=== PATIENT | male | born 1950 | race Caucasian/White ===

== ENCOUNTER 2023-03-16 17:36 | Emergency (ER) | payer MEDICARE, OTHER, SELFPAY ==
[2023-03-16 17:41] VITALS: BP 174/89; PULSE 80; RESP 24; TEMP 36.8; O2SAT 99; BMI 25.0
--- NOTE | 2023-03-16 18:44 | ED.GENADULT ---
HPI - General Adult General Chief complaint: Trauma Stated complaint: Fell off ladder to face, NO blood thinners Time Seen by Provider: 03/16/23 17:51 Source: patient Mode of arrival: Ambulatory Limitations: no limitations History of Present Illness HPI narrative: Patient is a 72-year-old male. Yesterday he fell from a ladder. He sustained injuries to his face. He was seen at an outside facility yesterday. Was found to have intracranial gas over the left frontal sinus, LeFort type 1 and 2 on the left and possibly a LeFort type 3 on the right. Also has comminuted fractures of the anterior and posterior jennings of the frontal sinuses. According to the ED note that I was able to review from that visit the neurosurgical service at [facility] and also oral maxillofacial surgery at [facility] was contacted. According to the note the CT scans were reviewed. Apparently the decision was made to discharge the patient home with antibiotics and pain medication and instructions to follow-up in clinic. They were contacted by the oral maxillofacial surgery department at [facility] today. They were given a follow-up visit for March 23. He has been tolerating the antibiotics without issues. He has been taking the pain medication but he has been taking it every 6 hours. He is here because he states that he is having a headache. He also states that his jaw does not line up. He is no missing teeth. Is still tolerating oral intake but is taking soft foods. Related Data Previous Rx's Medication Instructions Recorded oxycodone-acetaminophen 5 mg-325 1 tab PO Q4H PRN pain #20 tabs 03/16/23 mg tablet (Percocet) Allergies Allergy/AdvReac Type Severity Reaction Status Date / Time No Known Drug Allergies Allergy Verified 03/16/23 17:41 Review of Systems Constitutional Constitutional: Reports system reviewed and no additional complaints, except as documented Eyes Eyes: Reports system reviewed and no additional complaints, except as documented ENT Ears, Nose, Mouth, and Throat: Reports system reviewed and no additional complaints, except as documented Integumentary/Breasts Skin/Breast: Reports system reviewed and no additional complaints, except as documented Neurologic Neurologic: Reports system reviewed and no additional complaints, except as documented Hematologic/Lymphatic On Anticoagulants: No Patient History Social History Smoking Status: Never smoker Smoking Status: Never smoker alcohol intake frequency: holidays/special occasions only Substance Use Type: does not use Exam Initial Vital Signs Initial Vital Signs: Vital Signs Temperature 98.2 F 03/16/23 17:41 Pulse Rate 80 03/16/23 17:41 Respiratory Rate 24 03/16/23 17:41 Blood Pressure 174/89 H 03/16/23 17:41 Pulse Oximetry 99 03/16/23 17:41 Oxygen Delivery Method Room Air 03/16/23 17:41 Const General: cooperative HENMT Head: abrasion and contusion Nose: No epistaxis and other (Somewhat deviated to the left) HENMT Other: No clear nasal discharge Eyes Other: Contusion on both eyes with left being greater than the right Skin Other: Contusions around the eyes. Neuro General: patient alert, patient awake and moves all extremities Extrem Other: No gross deformities Scores GCS Cain coma scale eye opening: Spontaneous Cain coma scale verbal response: Orientated [place] coma scale motor response: Obey commands [place] coma scale total score: 15 Course Vital Signs Vital signs: Vital Signs - 8 hr 03/16/23 17:41 03/16/23 18:53 Temperature 98.2 F Pulse Rate 80 63 Respiratory Rate 24 Blood Pressure 174/89 H 153/74 H Pulse Oximetry 99 98 Oxygen Delivery Method Room Air Room Air Medical Decision Making Medical Records Medical records reviewed: Yes I reviewed the patient's medical records. [facility] Narrative Medical decision making narrative: It was able to review the medical records from his emergency department visit yesterday. I was also able to review the radiology reports. Patient returns today because he has a continued headache. This is not surprising given his presentation. He absolutely has sustained a concussion and he also has other injuries that would cause a headache as well. I had a discussion with him regarding this. They were also concerned about the length of time before they could get into follow-up with Oral maxillofacial surgery. According to the note from yesterday there were discussions both with neurosurgery and oral maxillofacial surgery and everyone involved felt that the patient could follow-up as an outpatient. He is on antibiotics. I do not think that we need to repeat any imaging today. He is no new neurologic symptoms. Turns out that he is probably not using his pain medication is often is what he should. He was concerned about taking this given the nature of the medication and worried about all of the bed side effects that he could have. He was also worried about running out of the medication before he could get into follow-up with the oral maxillofacial surgeons at [facility]. We did discuss this medication. Tried to discuss the balance between taking the medication in the side effects. I will also print off a prescription for more medication that they can have just in case he needs it before his next appointment. Will discharge patient home with return precautions. He expressed understanding and agreement. Discharge Plan Departure Patient Disposition: Home Clinical Impression: Facial fracture, Headache, Concussion Instructions: DI for Concussion Activity Restrictions/Additional Instructions: Do recommend that you take the pain medication like we discussed. Also continue to take the antibiotics. He will need follow-up with the oral maxillofacial surgeons at [facility]. Return to the emergency department for new or worsening symptoms. Prescriptions: New oxycodone-acetaminophen [Percocet] 5-325 mg tablet 1 tab PO Q4H PRN (Reason: pain) Qty: 20 0RF Stand Alone Forms: Patient Portal/API
--- NOTE | 2023-03-16 18:50 | PC.NURSE ---
Pt fell off ladder yesterday, 9 ft fall, landed face first. Arrived POV to [facility], ambulated into ER. Received a full work up, diagnosed with LeFort I, II, III fx, air in frontal sinus, communuted fx of frontal sinus bilaterally and intercranial gas. Pt states he was d/c from [facility] and told to follow up with [facility]ill[facility]. Pt spoke to Oral Max office this morning and states he will not be seen in outpatient clinic for 1 week. Pt arrives today requesting pain management for BURNET[place]. [place] ED physician, Ehsan, at bedside upon pt arrival. Pt AOx4, GCS 15, in no apparent distress. Trauma charting initiated to ensure pts injuries were acknowledged and documented .
[2023-03-16 18:53] VITALS: BP 153/74; PULSE 63; O2SAT 98
--- NOTE | 2023-03-16 18:58 | PC.NURSE ---
Records requested from [facility] and received within 15-20 mins of pt arrival. Physician, RN and charge reviewed pt records.
== END 2023-03-16 19:06 | disposition home or self-care (01) ==
PROVIDERS: Emergency Provider Emergency Medicine
DX: S06.0X0A Concussion without loss of consciousness, initial encounter (principal); R51.9 Headache, unspecified; S02.92XA Unspecified fracture of facial bones, initial encounter for closed fracture; W11.XXXA Fall on and from ladder, initial encounter
CPT/HCPCS: 99283